=== PATIENT | male | born 1990 | race African-American/Black ===

== ENCOUNTER 2023-10-18 13:05 | Emergency (ER) | payer OTHER, SELFPAY ==
[2023-10-18 13:11] VITALS: BP 118/60; PULSE 77; RESP 18; TEMP 36.9; O2SAT 100
--- NOTE | 2023-10-18 14:01 | ED.MALEGU ---
HPI - Male Genitourinary General Chief complaint: Urogenital-Male Stated complaint: Erection x 4 hours Time Seen by Provider: 10/18/23 13:42 History of Present Illness HPI Narrative: Patient told his rehab center that he was having erection for 4 hours. He told nursing this too. When I talked to him he states that he is actually here because he has had some new irritating lesions on his penis. He states that he has been with the same 2 partners. Denies any complaints such as discharge. Related Data Allergies Allergy/AdvReac Type Severity Reaction Status Date / Time No Known Allergies Allergy Verified 10/18/23 13:15 Review of Systems Review of Systems: CONST: No fever. HEENT: No sore throat C/V: No chest pain RESP: No cough GI: No abdominal pain : Penile lesions M/S: No joint pain. SKIN: Penile lesions NEURO: [No headache or focal numbness or weakness] PSYCH: [No depression] Exam Narrative: EXAMINATION OF ORGAN SYSTEMS/BODY AREAS: Constitutional: Vital signs per nursing GENERAL:[No acute distress, non-toxic appearing.] HEAD: Normal with no signs of head trauma. EYES: EOMI, conjunctiva normal ENT: Hearing grossly intact LUNGS: Nonlabored breathing. HEART: [Regular rate and rhythm] ABD: [Soft], nondistended : with furniture sales consultant in room. No erection; flaccid penis with vesicular lesions that are irritated to the glans/shaft EXT: Normal range of motion SKIN: [No rashes or lesions.] NEURO: [Alert and oriented x 3. No gross focal sensory or strength deficits.] PSYCH: Normal affect Course Vital Signs Vital signs: Vital Signs Temperature 98.4 F 10/18/23 13:11 Pulse Rate 77 10/18/23 13:11 Respiratory Rate 18 10/18/23 13:11 Blood Pressure 118/60 10/18/23 13:11 Pulse Oximetry 100 10/18/23 13:11 Oxygen Delivery Room Air 10/18/23 13:11 Temperature 98.4 F 10/18/23 13:11 Pulse Rate 77 10/18/23 13:11 Respiratory Rate 18 10/18/23 13:11 Blood Pressure 118/60 10/18/23 13:11 Pulse Oximetry 100 10/18/23 13:11 Oxygen Delivery Room Air 10/18/23 13:11 MDM - Male Genitourinary MDM Narrative Medical decision making narrative: Patient presenting with penile lesions, he initially told people that he had priapism however on exam he has no erection, just vesicular lesions consistent with herpes. He started on Valtrex and given follow-up information to a primary care doctor and given basic precautions and instructions. Stable for discharge at this time. Discharge Plan Discharge Clinical Impression: Genital herpes in men Patient Disposition: Home, Self-Care Condition: Stable Instructions: Antibiotic Form, Genital Herpes Infection (ED) Additional Instructions: Please practice safe sex. Let your sexual partners know. Use a condom and do not have sexual intercourse until your outbreak is over. Prescriptions: New valacyclovir [Valtrex] 1 gram tablet 1,000 mg PO BID 10 Days Qty: 20 0RF Follow-up/Referrals: PHYSICIAN,RHIC SYSTEMS SAFETY ENGINEER [Primary Care Provider] - Hugo Blackwell MD [Physician] - 2 Days
== END 2023-10-18 14:20 | disposition home or self-care (01) ==
LOC: ANHED 14:10
PROVIDERS: Emergency Provider Emergency Medicine
DX: A60.01 Herpesviral infection of penis (principal)
CPT/HCPCS: 99283